=== PATIENT | male | born 1965 | race African-American/Black ===

== ENCOUNTER 2017-03-02 10:44 | Outpatient (RCR) | payer MEDICAID | END 2017-03-17 | disposition home or self-care (01) | LOC: PTT 10:44 | PROVIDERS: ATTEND Family Medicine | DX: M25.562 Pain in left knee (principal); M19.90 Unspecified osteoarthritis, unspecified site | CPT/HCPCS: X3908; X3920; X3922 ==

== ENCOUNTER 2017-07-22 01:52 | Emergency (ER) | payer OTHER ==
[~2017-07-22] VITALS: Ht 182.9 cm; Wt 118.2 kg
[2017-07-22] MEDS ORDERED: LIDOCAINE HCL 1% 10 ML VIAL INJ ONE (04:30)
[2017-07-22 05:07] LABS: SPECIMENTYPE,BODY FLUID SYNOVIAL
[2017-07-22 05:36] LABS: CRYSTALS, SYNOVIAL FLUID None Seen (None Seen)
[2017-07-22 06:00] LABS: APPEARANCE,UNSPUN,BODY FLUID BLOODY (CLEAR)
[2017-07-22 06:01] LABS: APPEARANCE,SPUN,BODY FLUID BLOODY (CLEAR); COLOR,BODY FLUID RED (LT YELLOW); TOTAL VOLUME,BODY FLUID 18 mL
[2017-07-22 06:15] LABS: BASOPHILS % (AUTO) 0.2 % (0.0-2.0); EOSINOPHILS % (AUTO) 0.1 % (1.0-6.0); HEMATOCRIT 52.8 % (41-53); HEMOGLOBIN 18.5 g/dL (13.5-17.5); LYMPHOCYTES # (AUTO) 1.2 K/uL (1.0-4.8); LYMPHOCYTES % (AUTO) 9.8 % (22.0-44.0); MEAN CORPUSCULAR HEMOGLOBIN 29.1 pg (26.0-34.0); MEAN CORPUSCULAR VOLUME 83 fL (80-100); MONOCYTES # (AUTO) 1.3 K/uL (0.1-1.0); MONOCYTES % (AUTO) 10.2 % (2.0-9.0); NEUTROPHILS # (AUTO) 10.2 K/uL (1.8-7.7); NEUTROPHILS % (AUTO) 79.7 % (40.0-70.0); PLATELET COUNT (AUTO) 182 K/uL (150-450); RED BLOOD CELL COUNT(AUTO) 6.35 MIL/uL (4.50-5.90); RED CELL DISTRIBUTION WIDTH 13.4 % (11.5-14.5)
[2017-07-22 06:16] LABS: WBC, BODY FLUID 16.6 /cu. mm.
[2017-07-22 06:30] LABS: BASOPHILS,BODY FLUID 0 %; EOSINOPHILS,BF (ANAL) 0 %; LYMPHOCYTES,BODY FLUID 1 %; MONOCYTES,BODY FLUID 1 %; NEUTROPHILS,BODY FLUID 98 %
[2017-07-22 06:36] LABS: CALCIUM, TOTAL 8.9 mg/dL (8.8-10.5); CREATININE 2.32 mg/dL (0.60-1.30); POTASSIUM 3.9 mmol/L (3.5-5.1)
[2017-07-22 06:43] LABS: ALBUMIN 3.5 g/dL (3.4-5.0); TOTAL PROTEIN, SERUM 7.9 g/dL (6.4-8.2)
[2017-07-22 07:02] LABS: PLATELET MORPHOLOGY COMMENT GIANT PLTS PRESENT
[2017-07-22 07:20] VITALS: BP 119/79
== END 2017-07-22 07:57 | disposition home or self-care (01) ==
LOC: EMS 01:52
DX: M25.462 Effusion, left knee (principal); R79.89 Other specified abnormal findings of blood chemistry; G89.29 Other chronic pain
CPT/HCPCS: 20610; 36415; 73562; 80053; 82945; 85025; 87070; 87205; 89051; 89060; 99285; J3490

== ENCOUNTER → 2017-09-19 | Outpatient (CLI) | payer OTHER | END | disposition home or self-care (01) | LOC: RADPV 13:00 | PROVIDERS: ATTEND Internal Medicine Nephrology | DX: N28.1 Cyst of kidney, acquired (principal); N18.9 Chronic kidney disease, unspecified | CPT/HCPCS: 76770 ==

== ENCOUNTER 2019-05-24 07:23 | Emergency (ER) | payer SELFPAY ==
[~2019-05-24] VITALS: Ht 177.8 cm; Wt 100.0 kg
[2019-05-24] MEDS ORDERED: IBUPROFEN 600 MG TABLET PO ONE (08:15)
[2019-05-24 09:00] VITALS: BP 141/82
== END 2019-05-24 09:10 | disposition home or self-care (01) ==
LOC: EMS 07:24
DX: M25.572 Pain in left ankle and joints of left foot (principal)

== ENCOUNTER 2022-02-06 20:41 | Emergency (ER) | payer OTHER ==
[~2022-02-06] VITALS: Ht 172.7 cm; Wt 115.9 kg
[2022-02-06] MEDS ORDERED: KETOROLAC TROMETHAMINE 30 MG/ML VIAL IM ONE (23:45)
[2022-02-07 00:12] VITALS: BP 157/87
== END 2022-02-07 00:16 | disposition home or self-care (01) ==
LOC: EMS 20:42
DX: M76.891 Other specified enthesopathies of right lower limb, excluding foot (principal); Z87.39 Personal history of other diseases of the musculoskeletal system and connective tissue; Z98.890 Other specified postprocedural states; Z88.5 Allergy status to narcotic agent
CPT/HCPCS: 99283; 96372; J1885

== ENCOUNTER 2022-02-23 21:10 | Emergency (ER) | payer OTHER ==
[~2022-02-23] VITALS: Ht 175.3 cm; Wt 115.0 kg
[2022-02-23] MEDS ORDERED: BARIUM SULFATE 0.1% SUSPENSION 450 ML BOTTLE PO ONE (23:00)
[2022-02-23 23:42] LABS: BASOPHILS % (AUTO) 1.1 % (0.0-2.0); EOSINOPHILS % (AUTO) 2.1 % (1.0-6.0); HEMATOCRIT 39.7 % (41-53); HEMOGLOBIN 13.7 g/dL (13.5-17.5); LYMPHOCYTES # (AUTO) 1.4 K/uL (1.0-4.8); MEAN CORPUSCULAR HEMOGLOBIN 29.1 pg (26.0-34.0); MEAN CORPUSCULAR HGB CONC 34.4 G/dL (31.0-37.0); MEAN CORPUSCULAR VOLUME 85 fL (80-100); MONOCYTES # (AUTO) 0.6 K/uL (0.1-1.0); MONOCYTES % (AUTO) 7.8 % (2.0-9.0); NEUTROPHILS # (AUTO) 5.7 K/uL (1.8-7.7); PLATELET COUNT (AUTO) 158 K/uL (150-450); RED BLOOD CELL COUNT(AUTO) 4.69 MIL/uL (4.50-5.90); RED CELL DISTRIBUTION WIDTH 13.8 % (11.5-14.5)
[2022-02-23 23:52] LABS: CALCIUM, TOTAL 9.6 mg/dL (8.8-10.5); CREATININE 2.97 mg/dL (0.60-1.30); POTASSIUM 4.2 mmol/L (3.5-5.1)
[2022-02-24 00:05] LABS: ALBUMIN 3.6 g/dL (3.4-5.0); BILIRUBIN,TOTAL 0.9 mg/dL (0.1-1.0)
[2022-02-24 01:48] LABS: APPEARANCE,URINE CLEAR (CLEAR); BILIRUBIN,URINE NEGATIVE (NEGATIVE); GLUCOSE, URINE (UA) NEGATIVE (NEGATIVE); KETONES,URINE NEGATIVE (NEGATIVE); LEUKOCYTE ESTERASE ,URINE NEGATIVE (NEGATIVE); NITRATE,URINE NEGATIVE (NEGATIVE); OCCULT BLOOD,URINE NEGATIVE (NEGATIVE); PH,URINE 5.5 (5.0-8.0); PROTEIN,URINE TRACE mg/dL (NEGATIVE); SPECIFIC GRAVITIY, URINE 1.024 (1.003-1.030); UROBILINOGEN,URINE <=1.0 mg/dL (<=1.0)
[2022-02-24] MEDS ORDERED: TAMSULOSIN HCL 0.4 MG CAPSULE PO ONE (02:45)
[2022-02-24] MEDS ORDERED: KETOROLAC TROMETHAMINE 30 MG/ML VIAL IVP ONE (02:45)
[2022-02-24] MEDS ORDERED: TRAM50TA4 PO (02:46)
[2022-02-24] MEDS ORDERED: TAMS-13 PO (02:46)
[2022-02-24] MEDS ORDERED: DOCU-385 PO (02:46)
[2022-02-24 03:00] VITALS: BP 155/96
== END 2022-02-24 03:18 | disposition home or self-care (01) ==
LOC: EMS 21:10
DX: N20.1 Calculus of ureter (principal); E78.00 Pure hypercholesterolemia, unspecified; G89.29 Other chronic pain; K59.00 Constipation, unspecified; I10 Essential (primary) hypertension; R11.2 Nausea with vomiting, unspecified; M54.9 Dorsalgia, unspecified
CPT/HCPCS: 99285; 80053; 81003; 83690; 84484; 85025; 36415; 74176; 93005; 96372; Q9967; J1885